=== PATIENT | male | born 1930 | race Caucasian/White ===

== ENCOUNTER 2020-09-14 09:37 | Emergency (ER) | payer MEDICARE ==
[~2020-09-14] VITALS: Ht 177.8 cm; Wt 100.4 kg
[2020-09-14 11:12] LABS: BASOPHILS % (AUTO) 1 % (0-1); EOSINOPHILS % (AUTO) 3 % (1-7); LYMPHOCYTES % (AUTO) 18 % (22-44); MEAN CORPUSCULAR HEMOGLOBIN 30.2 pg (27.5-34.5); MEAN PLATELET VOLUME 7.5 fL (7.4-10.4); MONOCYTES % (AUTO) 6 % (2-9); NEUTROPHILS % (AUTO) 73 % (42-75); PLATELET COUNT 251 x10^3/uL (130-400); RED BLOOD COUNT 4.34 x10^6/uL (4.38-5.82); RED CELL DISTRIBUTION WIDTH 13.5 % (9.4-14.8)
[2020-09-14 11:13] LABS: ALBUMIN 3.9 g/dL (3.4-5.0); ANION GAP 4 mmol/L (5-15); CALCIUM 8.7 mg/dL (8.5-10.1); CHLORIDE 106 mmol/L (98-107); CREATININE 1.54 mg/dL (0.7-1.3); MD NO
--- NOTE | 2020-09-14 11:37 | NUR ---
PT AMBULATORY TO ROOM AT THIS TIME.
[2020-09-14 13:08] VITALS: BP 160/78
--- NOTE | 2020-09-14 13:08 | NUR ---
1 liter of fluids ran through boo. clear fluid drainage observed in boo.
[2020-09-14 13:29] LABS: MICROSCOPIC INDICATED
== END 2020-09-14 15:34 | disposition home or self-care (01) ==
LOC: ED 14:26
DX: N30.01 Acute cystitis with hematuria (principal)
CPT/HCPCS: 36415; 80048; 81001; 82040; 85025; 87077; 87086; 87186; 99283

== ENCOUNTER → 2021-03-16 | Outpatient (CLI) | payer MEDICARE ==
[~2021-03-16] MED LIST: REGADENOSON 0.4 MG/5 ML SYRINGE ONE
== END | disposition home or self-care (01) ==
LOC: CFH 12:41
PROVIDERS: ATTEND Internal Medicine Cardiovascular Disease
DX: I21.19 ST elevation (STEMI) myocardial infarction involving other coronary artery of inferior wall (principal); I25.89 Other forms of chronic ischemic heart disease; I25.10 Atherosclerotic heart disease of native coronary artery without angina pectoris; I50.9 Heart failure, unspecified
CPT/HCPCS: 78452; 93017; A9502; J2785

== ENCOUNTER 2021-06-06 10:16 | Outpatient (CLI) | payer MEDICARE | END 2021-06-06 23:59 | disposition home or self-care (01) | LOC: LAB 10:16 | PROVIDERS: ATTEND Registered Nurse | DX: Z02.9 Encounter for administrative examinations, unspecified (principal) ==